=== PATIENT | female | born 1945 | race Caucasian/White ===

== ENCOUNTER → 2018-04-28 | Outpatient (CLI) | payer MEDICARE, OTHER ==
[2018-04-28 14:24] LABS: PLATELET COUNT, AUTOMATED 303 K/uL (150-450)
== END ==
LOC: LAB 12:31
PROVIDERS: ATTEND Internal Medicine Rheumatology
DX: Z79.899 Other long term (current) drug therapy (principal)
CPT/HCPCS: 36415; 82040; 82565; 84450; 84460; 85025